=== PATIENT | female | born 1935 | race Asian ===

== ENCOUNTER 2019-07-06 17:25 | Inpatient (IN) | payer MEDICARE, MEDICAID ==
[~2019-07-06] VITALS: Ht 157.5 cm; Wt 88.5 kg
[~2019-07-06 17:25] MED LIST: CILO100T PO; DILT-26 PO; DOCU-150 PO; FERR325T6 PO; FISH1CAP34 PO; GLUC500T12 PO; MONT10TA26 PO; NITR0.4T49 SL; PRAV80TA19 PO; SPIR25TA6 PO; VALS1TAB2 PO
[2019-07-06] MEDS ORDERED: SODIUM CHLORIDE 0.9% 1000ML BAG (SEPSIS BOLUS) IV ONE (17:45)
[2019-07-06 17:55] LABS: HEMATOCRIT. 33.6 % (36.0-48.0); HEMOGLOBIN. 11.3 g/dL (12.0-16.0); MEAN CORPUSCULAR VOLUME 80.4 fL (81.0-99.0); MEAN PLATELET VOLUME 7.2 fl (7.4-10.4); PLATELET 370 x1000/uL (130-400); RED BLOOD CELL COUNT 4.18 mill/uL (4.2-5.4); RED CELL DISTRIBUTION WIDTH 13.9 % (11.6-14.6)
[2019-07-06 18:01] LABS: CHLORIDE 92 mEq/L (98-107)
[2019-07-06 18:04] LABS: INR 0.9; PROTHROMBIN TIME 9.7 sec (9.6-11.0)
[2019-07-06 18:05] LABS: KETONES URINE TRACE (NEGATIVE); LEUKOCYTE ESTERASE URINE 3+ (NEGATIVE); NITRITE URINE NEGATIVE (NEGATIVE); OCCULT BLOOD URINE 3+ (NEGATIVE); PROTEIN URINE 3+ (NEGATIVE); SPECIFIC GRAVITY URINE 1.015 (1.005-1.030)
[2019-07-06 18:11] LABS: CLARITY URINE CLOUDY (CLEAR); COLOR URINE YELLOW (YELLOW)
[2019-07-06 18:14] LABS: PLATELET ESTIMATE NORMAL
[2019-07-06] MEDS ORDERED: VANCOMYCIN 1 G PREMIX 200 ML IV ONE (18:15)
[2019-07-06] MEDS ORDERED: PIPERACILLIN/TAZ 3.375G PREMIX 50 ML IV ONE (18:15)
[2019-07-06] MEDS ORDERED: NOREPINEPHRINE 4MG/250ML PMX 250 ML IV ONE (19:30)
[2019-07-06 20:38] LABS: BG BASE EXCESS -11.2 mmol/L (-2.0-2.0); BG CARBOXYHEMOGLOBIN 0.2 % (0.5-1.5); BG DEOXYHEMOGLOBIN 5.6 % (0.0-5.0); BG FRACTION INSPIRED OXYGEN 100; BG METHEMOGLOBIN 0.2 % (0.0-1.5); BG OXYGEN SATURATION 94.4 % (92.0-98.5); BG PCO2 41.1 mmHg (35.0-45.0); BG PH 7.208 (7.350-7.450); BG PO2 120.4 mmHg (75.0-100.0); BG SAMPLE SITE RIGHT RADIAL; BG TOTAL HEMOGLOBIN 9.6 g/dL (12.0-18.0); BG VENT MODE MASK - NRB
[2019-07-06] MEDS ORDERED: DIPHENHYDRAMINE 50MG/ML VIAL IV PRN (21:15)
[2019-07-06] MEDS ORDERED: ACETAMINOPHEN 325MG TABLET PO PRN (21:15)
[2019-07-06] MEDS ORDERED: VANCOMYCIN 1 G PREMIX 200 ML IV SCH (21:15)
[2019-07-06] MEDS ORDERED: GUAIFENESIN 200MG/10ML SUGAR FREE UDC PO PRN (21:15)
[2019-07-06] MEDS ORDERED: ONDANSETRON HCL 4MG/2ML INJ IV PRN (21:15)
[2019-07-06] MEDS ORDERED: DEXTROSE 50% WATER 50ML SYRINGE IV PRN (21:15)
[2019-07-06] MEDS ORDERED: IPRATROPIUM/ALBUTEROL 0.5-3(2.5)MG/3ML NEB HHN PRN (21:15)
[2019-07-06] MEDS ORDERED: SODIUM BICARBONATE 8.4% 1 MEQ/ML 50ML SYR IV ONE (21:15)
[2019-07-06] MEDS: SODIUM BICARBONATE 100 MEQ in DEXTROSE 5% WATER 1,000 ML IV SCH (21:53)
[2019-07-06] MEDS ORDERED: MEROPENEM 1,000 MG in SODIUM CHLORIDE 0.9% 100 ML IV SCH (23:00)
[2019-07-06] MEDS ORDERED: MEROPENEM-0.9% SODIUM CHLORIDE 50 ML IV SCH ×2 (23:00)
[2019-07-07] VITALS (78 sets, daily range): BP systolic 79–139; BP diastolic 45–112
[2019-07-07] MEDS: SODIUM BICARBONATE 100 MEQ in DEXTROSE 5% WATER 1,000 ML IV SCH (01:13)
[2019-07-07] MEDS ORDERED: NOREPINEPHRINE 4 MG in DEXT 5% WATER 246 ML IV PRN ×4 (02:00)
[2019-07-07] MEDS ORDERED: MEROPENEM 1,000 MG in SODIUM CHLORIDE 0.9% 100 ML IV SCH (05:00)
[2019-07-07] MEDS: BLOOD SUGAR DIAGNOSTIC STRIP TEST SCH ×4 (05:50→21:04)
[2019-07-07] MEDS: INSULIN LISPRO 100 UNITS/ML SUBCUT SCH ×4 (05:50→21:00)
[2019-07-07 06:39] LABS: HEMATOCRIT. 30.2 % (36.0-48.0); HEMOGLOBIN. 10.2 g/dL (12.0-16.0); MEAN CORPUSCULAR HEMOGLOBIN 27.2 pg (28.0-32.0); MEAN CORPUSCULAR VOLUME 80.3 fL (81.0-99.0); PLATELET 332 x1000/uL (130-400); RED BLOOD CELL COUNT 3.76 mill/uL (4.2-5.4)
[2019-07-07 06:51] LABS: CHLORIDE 94 mEq/L (98-107)
[2019-07-07 07:03] LABS: PHOSPHORUS 3.6 mg/dL (2.5-4.9)
[2019-07-07 07:25] LABS: VITAMIN B12 SERUM >2000 pg/mL pg/mL (211-911)
[2019-07-07 08:58] LABS: PLATELET ESTIMATE NORMAL
[2019-07-07] MEDS ORDERED: PANTOPRAZOLE SODIUM 40 MG/VIAL IV SCH (09:00)
[2019-07-07] MEDS ORDERED: VANCOMYCIN HCL 750 MG in DEXT 5% WATER 250 ML IV SCH (09:00)
[2019-07-07 09:34] LABS: BG CARBOXYHEMOGLOBIN 0.3 % (0.5-1.5); BG DEOXYHEMOGLOBIN 6.4 % (0.0-5.0); BG FRACTION INSPIRED OXYGEN 40; BG HCO3 ACT 23.4 mmol/L (22.0-26.0); BG OXYGEN SATURATION 93.6 % (92.0-98.5); BG OXYHEMOGLOBIN 93.3 % (94.0-97.0); BG PCO2 42.6 mmHg (35.0-45.0); BG PH 7.357 (7.350-7.450); BG PO2 83.4 mmHg (75.0-100.0); BG SAMPLE SITE LEFT RADIAL; BG TOTAL HEMOGLOBIN 9.1 g/dL (12.0-18.0); BG VENT MODE NASAL CANNULA
[2019-07-07] MEDS ORDERED: MEROPENEM 500 MG in SODIUM CHLORIDE 0.9% 50 ML IV SCH (10:00)
[2019-07-07] MEDS ORDERED: NOREPINEPHRINE 4 MG in SODIUM CHLORIDE 0.9% 246 ML IV PRN (10:13)
[2019-07-07 12:06] LABS: C REACTIVE PROTEIN QUANT 8.4 mg/L (0.0-3.0)
[2019-07-07] MEDS: [UNRECOGNIZED DRUG - OTHER] IV SCH (12:56)
[2019-07-07] MEDS: SODIUM BICARBONATE IV SCH (12:56)
[2019-07-07] MEDS: POTASSIUM CHLORIDE IV SCH (12:56)
[2019-07-07] MEDS ORDERED: CEFTRIAXONE 1 G PREMIX 50 ML IV SCH (16:00)
[2019-07-07] MEDS: AZITHROMYCIN 500 MG in DEXT 5% WATER 250 ML IV SCH (17:08)
[2019-07-08] VITALS (81 sets, daily range): BP systolic 90–157; BP diastolic 48–120
[2019-07-08] MEDS: SODIUM BICARBONATE IV SCH (01:15)
[2019-07-08] MEDS: [UNRECOGNIZED DRUG - OTHER] IV SCH (01:15)
[2019-07-08] MEDS: POTASSIUM CHLORIDE IV SCH (01:15)
[2019-07-08 05:38] LABS: HEMATOCRIT. 27.5 % (36.0-48.0); HEMOGLOBIN. 9.3 g/dL (12.0-16.0); MEAN CORPUSCULAR HEMOGLOBIN 27.2 pg (28.0-32.0); MEAN PLATELET VOLUME 7.3 fl (7.4-10.4); PLATELET 329 x1000/uL (130-400); RED BLOOD CELL COUNT 3.44 mill/uL (4.2-5.4)
[2019-07-08 05:45] LABS: CHLORIDE 99 mEq/L (98-107)
[2019-07-08 05:53] LABS: PHOSPHORUS 2.8 mg/dL (2.5-4.9)
[2019-07-08] MEDS: BLOOD SUGAR DIAGNOSTIC STRIP TEST SCH ×4 (06:30→21:00)
[2019-07-08] MEDS: INSULIN LISPRO 100 UNITS/ML SUBCUT SCH ×4 (07:00→21:00)
[2019-07-08 08:13] LABS: PLATELET ESTIMATE NORMAL
[2019-07-08] MEDS: FAMOTIDINE 20MG/2ML VIAL IV SCH (09:52)
[2019-07-08] MEDS ORDERED: VANCOMYCIN 1 G PREMIX 200 ML IV SCH (10:00)
[2019-07-08] MEDS ORDERED: MAGNESIUM 1 G PREMIX 100 ML IV ONE (10:00)
[2019-07-08] MEDS: POTASSIUM CHLORIDE INJ 40 MEQ in SODIUM CHLORIDE 0.9% 1,000 ML IV SCH (10:00)
[2019-07-08] MEDS ORDERED: VANCOMYCIN 1,000 MG in DEXT 5% WATER 250 ML IV SCH (10:00)
[2019-07-08] MEDS: ENOXAPARIN 30MG/0.3ML SYR SUBCUT SCH (13:00)
[2019-07-08] MEDS: AZITHROMYCIN 500 MG in DEXT 5% WATER 250 ML IV SCH (16:50)
[2019-07-08] MEDS ORDERED: ALBUTEROL (0.083%) 2.5MG/3ML NEB HHN SCH (18:00)
[2019-07-08] MEDS: CEFTRIAXONE 1 G PREMIX 50 ML IV SCH (20:21)
[2019-07-09] VITALS: BP 144/77
[2019-07-09 04:00] VITALS: BP 135/74
[2019-07-09] MEDS: BLOOD SUGAR DIAGNOSTIC STRIP TEST SCH ×4 (06:53→21:00)
[2019-07-09] MEDS: INSULIN LISPRO 100 UNITS/ML SUBCUT SCH ×4 (06:54→21:00)
[2019-07-09 08:00] VITALS: BP 133/50
[2019-07-09 09:48] LABS: BASOPHILS % 0.5 % (0.0-2.0); EOSINOPHILS % 1.7 % (0.0-5.0); HEMATOCRIT. 27.2 % (36.0-48.0); MEAN CORPUSCULAR HEMOGLOBIN 27.3 pg (28.0-32.0); MEAN CORPUSCULAR VOLUME 82.4 fL (81.0-99.0); MEAN PLATELET VOLUME 6.6 fl (7.4-10.4); MONOCYTES % 5.4 % (2.0-8.0); NEUTROPHILS % 82.4 % (40.0-76.0); PLATELET 340 x1000/uL (130-400)
[2019-07-09 10:06] LABS: PHOSPHORUS 1.9 mg/dL (2.5-4.9)
[2019-07-09] MEDS ORDERED: POTASSIUM CHLORIDE 20MEQ TABLET SR PO NR (11:00)
[2019-07-09] MEDS: HYDROXYCHLOROQUINE SULFATE 200MG TABLET PO SCH ×2 (11:16→21:43)
[2019-07-09] MEDS: FAMOTIDINE 20MG/2ML VIAL IV SCH (11:16)
[2019-07-09 12:00] VITALS: BP 100/73
[2019-07-09] MEDS ORDERED: POTASSIUM PHOS,M-BASIC-D-BASIC 20 MMOL in DEXT 5% WATER 243.3333 ML IV NR (12:00)
[2019-07-09] MEDS ORDERED: MAGNESIUM 4 G PREMIX 100 ML IV NR (12:00)
[2019-07-09] MEDS: VANCOMYCIN 1,000 MG in DEXT 5% WATER 250 ML IV SCH (12:32)
[2019-07-09] MEDS: ENOXAPARIN 30MG/0.3ML SYR SUBCUT SCH (12:41)
[2019-07-09 16:00] VITALS: BP 150/60
[2019-07-09] MEDS: AZITHROMYCIN 500 MG in DEXT 5% WATER 250 ML IV SCH (17:11)
[2019-07-09] MEDS: CEFTRIAXONE 1 G PREMIX 50 ML IV SCH (17:11)
[2019-07-09 20:00] VITALS: BP 134/76
[2019-07-10] VITALS: BP 147/85
[2019-07-10] MEDS: ACETAMINOPHEN 325MG TABLET PO PRN ×2 (00:15→12:19)
[2019-07-10 04:00] VITALS: BP 138/78
[2019-07-10] MEDS: BLOOD SUGAR DIAGNOSTIC STRIP TEST SCH ×4 (05:59→21:00)
[2019-07-10] MEDS: INSULIN LISPRO 100 UNITS/ML SUBCUT SCH ×4 (06:00→21:00)
[2019-07-10 06:34] LABS: BASOPHILS % 0.6 % (0.0-2.0); EOSINOPHILS % 3.1 % (0.0-5.0); HEMATOCRIT. 25.6 % (36.0-48.0); HEMOGLOBIN. 8.9 g/dL (12.0-16.0); LYMPHOCYTES % 9.8 % (20.0-50.0); MEAN CORPUSCULAR HEMOGLOBIN 27.9 pg (28.0-32.0); MEAN CORPUSCULAR VOLUME 80.8 fL (81.0-99.0); MEAN PLATELET VOLUME 6.8 fl (7.4-10.4); MONOCYTES % 8.5 % (2.0-8.0); PLATELET 362 x1000/uL (130-400); RED BLOOD CELL COUNT 3.18 mill/uL (4.2-5.4); RED CELL DISTRIBUTION WIDTH 14.2 % (11.6-14.6)
[2019-07-10 07:09] LABS: PHOSPHORUS 3.2 mg/dL (2.5-4.9)
[2019-07-10 08:00] VITALS: BP 120/50
[2019-07-10] MEDS: LOSARTAN POTASSIUM 25 MG TABLET PO SCH (09:00)
[2019-07-10] MEDS: VANCOMYCIN 1,000 MG in DEXT 5% WATER 250 ML IV SCH (09:18)
[2019-07-10] MEDS: HYDROXYCHLOROQUINE SULFATE 200MG TABLET PO SCH ×2 (09:18→22:04)
[2019-07-10] MEDS: FAMOTIDINE 20MG/2ML VIAL IV SCH (09:19)
[2019-07-10 12:00] VITALS: BP 135/65
[2019-07-10] MEDS: POTASSIUM CHLORIDE INJ 40 MEQ in SODIUM CHLORIDE 0.9% 1,000 ML IV SCH (12:18)
[2019-07-10] MEDS: ENOXAPARIN 30MG/0.3ML SYR SUBCUT SCH (12:19)
[2019-07-10 16:00] VITALS: BP 165/73
[2019-07-10] MEDS ORDERED: TRAMADOL 50MG TABLET PO PRN (16:00)
[2019-07-10] MEDS: DILTIAZEM HCL 30MG TABLET PO SCH ×2 (16:40→22:03)
[2019-07-10] MEDS: AZITHROMYCIN 500 MG in DEXT 5% WATER 250 ML IV SCH (16:41)
[2019-07-10] MEDS ORDERED: DILTIAZEM HCL 30MG TABLET PO SCH (18:00)
[2019-07-10] MEDS ORDERED: ALBUTEROL 6.7GM HFA INHALER ORI SCH (18:00)
[2019-07-10] MEDS: CEFTRIAXONE 1 G PREMIX 50 ML IV SCH (18:19)
[2019-07-10 18:20] LABS: BG BASE EXCESS 2.5 mmol/L (-2.0-2.0); BG CARBOXYHEMOGLOBIN 0.2 % (0.5-1.5); BG DEOXYHEMOGLOBIN 5.9 % (0.0-5.0); BG FRACTION INSPIRED OXYGEN 38; BG HCO3 ACT 28.3 mmol/L (22.0-26.0); BG METHEMOGLOBIN 0.1 % (0.0-1.5); BG OXYGEN SATURATION 94.1 % (92.0-98.5); BG OXYHEMOGLOBIN 93.8 % (94.0-97.0); BG PCO2 49.9 mmHg (35.0-45.0); BG PH 7.371 (7.350-7.450); BG PO2 97.8 mmHg (75.0-100.0); BG SAMPLE SITE RIGHT RADIAL; BG TOTAL HEMOGLOBIN 9.1 g/dL (12.0-18.0); BG VENT MODE NASAL CANNULA
[2019-07-11] MEDS: DILTIAZEM HCL 30MG TABLET PO SCH ×4 (05:59→21:10)
[2019-07-11] MEDS: INSULIN LISPRO 100 UNITS/ML SUBCUT SCH ×4 (07:01→21:00)
[2019-07-11] MEDS: BLOOD SUGAR DIAGNOSTIC STRIP TEST SCH ×4 (07:01→21:55)
[2019-07-11 07:10] LABS: HEMATOCRIT. 26.6 % (36.0-48.0); MEAN CORPUSCULAR HEMOGLOBIN 27.3 pg (28.0-32.0); MEAN PLATELET VOLUME 7.1 fl (7.4-10.4); PLATELET 380 x1000/uL (130-400); RED BLOOD CELL COUNT 3.29 mill/uL (4.2-5.4); RED CELL DISTRIBUTION WIDTH 14.2 % (11.6-14.6)
[2019-07-11 07:11] LABS: CHLORIDE 103 mEq/L (98-107)
[2019-07-11 07:30] LABS: PHOSPHORUS 2.8 mg/dL (2.5-4.9)
[2019-07-11 08:00] VITALS: BP 142/70
[2019-07-11 10:32] LABS: PLATELET ESTIMATE NORMAL
[2019-07-11] MEDS: ACETAMINOPHEN 325MG TABLET PO PRN (10:32)
[2019-07-11] MEDS: FAMOTIDINE 20MG/2ML VIAL IV SCH (10:32)
[2019-07-11] MEDS: VANCOMYCIN 1,000 MG in DEXT 5% WATER 250 ML IV SCH (10:32)
[2019-07-11] MEDS: HYDROXYCHLOROQUINE SULFATE 200MG TABLET PO SCH ×2 (10:33→21:10)
[2019-07-11] MEDS: AZITHROMYCIN 500 MG TABLET PO SCH (10:33)
[2019-07-11] MEDS: LOSARTAN POTASSIUM 25 MG TABLET PO SCH (10:33)
[2019-07-11 12:00] VITALS: BP 121/70
[2019-07-11] MEDS: ENOXAPARIN 40MG/0.4ML SYR SUBCUT SCH (14:06)
[2019-07-11 16:00] VITALS: BP 140/74
[2019-07-11 20:00] VITALS: BP 149/78
[2019-07-12] VITALS: BP_SYST 127; BP_SYST 144; BP_DIAS 75; BP_DIAS 76
[2019-07-12 04:00] VITALS: BP 140/70
[2019-07-12] MEDS: DILTIAZEM HCL 30MG TABLET PO SCH ×4 (04:04→22:47)
[2019-07-12 05:21] LABS: BASOPHILS % 0.8 % (0.0-2.0); EOSINOPHILS % 3.2 % (0.0-5.0); HEMATOCRIT. 25.4 % (36.0-48.0); HEMOGLOBIN. 8.5 g/dL (12.0-16.0); LYMPHOCYTES % 12.4 % (20.0-50.0); MEAN CORPUSCULAR HEMOGLOBIN 27.4 pg (28.0-32.0); MEAN CORPUSCULAR VOLUME 81.2 fL (81.0-99.0); MONOCYTES % 8.8 % (2.0-8.0); NEUTROPHILS % 74.8 % (40.0-76.0); PLATELET 367 x1000/uL (130-400); RED BLOOD CELL COUNT 3.12 mill/uL (4.2-5.4); RED CELL DISTRIBUTION WIDTH 13.8 % (11.6-14.6)
[2019-07-12] MEDS: BLOOD SUGAR DIAGNOSTIC STRIP TEST SCH ×4 (05:58→21:00)
[2019-07-12] MEDS: INSULIN LISPRO 100 UNITS/ML SUBCUT SCH ×4 (06:45→21:00)
[2019-07-12] MEDS ORDERED: LOSARTAN POTASSIUM 50 MG TABLET PO SCH (09:00)
[2019-07-12] MEDS: HYDROXYCHLOROQUINE SULFATE 200MG TABLET PO SCH (10:25)
[2019-07-12] MEDS: FAMOTIDINE 20MG TABLET PO SCH (10:27)
[2019-07-12] MEDS: ALBUTEROL 6.7GM HFA INHALER ORI SCH ×2 (10:28→15:30)
[2019-07-12] MEDS: AZITHROMYCIN 500 MG TABLET PO SCH (10:28)
[2019-07-12 11:14] VITALS: BP 157/69
[2019-07-12 12:07] VITALS: BP 119/77
[2019-07-12] MEDS: GUAIFENESIN 600MG ER TABLET PO SCH ×2 (14:17→22:44)
[2019-07-12] MEDS: ENOXAPARIN 40MG/0.4ML SYR SUBCUT SCH (14:18)
[2019-07-12 16:12] VITALS: BP 151/113
[2019-07-12 20:00] VITALS: BP 142/78
[2019-07-13] VITALS: BP 144/75
[2019-07-13] MEDS: HYDROXYCHLOROQUINE SULFATE 200MG TABLET PO SCH ×3 (01:05→22:09)
[2019-07-13 04:00] VITALS: BP 163/73
[2019-07-13] MEDS: DILTIAZEM HCL 30MG TABLET PO SCH (04:39)
[2019-07-13] MEDS: ALBUTEROL 6.7GM HFA INHALER ORI SCH ×4 (05:10→22:09)
[2019-07-13] MEDS: BLOOD SUGAR DIAGNOSTIC STRIP TEST SCH ×4 (06:15→21:00)
[2019-07-13] MEDS: INSULIN LISPRO 100 UNITS/ML SUBCUT SCH ×4 (06:19→21:00)
[2019-07-13 08:16] VITALS: BP 134/40
[2019-07-13] MEDS: FAMOTIDINE 20MG TABLET PO SCH (09:37)
[2019-07-13] MEDS: GUAIFENESIN 600MG ER TABLET PO SCH ×2 (09:37→22:09)
[2019-07-13] MEDS: LOSARTAN POTASSIUM 100 MG TABLET PO SCH (09:38)
[2019-07-13 12:00] VITALS: BP 126/84
[2019-07-13] MEDS: DILTIAZEM HCL 180MG CAPSULE CD 24HR PO SCH (12:22)
[2019-07-13 16:11] VITALS: BP 126/73
[2019-07-13] MEDS: ENOXAPARIN 40MG/0.4ML SYR SUBCUT SCH (18:01)
[2019-07-13 20:00] VITALS: BP 138/68
[2019-07-14] VITALS: BP 139/64
[2019-07-14] MEDS: ALBUTEROL 6.7GM HFA INHALER ORI SCH ×4 (02:58→23:15)
[2019-07-14 04:00] VITALS: BP 125/50
[2019-07-14] MEDS: BLOOD SUGAR DIAGNOSTIC STRIP TEST SCH ×4 (06:40→21:00)
[2019-07-14] MEDS: INSULIN LISPRO 100 UNITS/ML SUBCUT SCH ×4 (07:10→21:00)
[2019-07-14 08:00] VITALS: BP 139/65
[2019-07-14] MEDS: LOSARTAN POTASSIUM 100 MG TABLET PO SCH (09:59)
[2019-07-14] MEDS: GUAIFENESIN 600MG ER TABLET PO SCH ×2 (09:59→22:11)
[2019-07-14] MEDS: FAMOTIDINE 20MG TABLET PO SCH (09:59)
[2019-07-14] MEDS: DILTIAZEM HCL 180MG CAPSULE CD 24HR PO SCH (09:59)
[2019-07-14 12:00] VITALS: BP 127/69
[2019-07-14] MEDS: ENOXAPARIN 40MG/0.4ML SYR SUBCUT SCH (14:37)
[2019-07-14 16:00] VITALS: BP 143/66
[2019-07-14 16:25] LABS: BASOPHILS % 1.1 % (0.0-2.0); EOSINOPHILS % 2.6 % (0.0-5.0); HEMATOCRIT. 29.5 % (36.0-48.0); LYMPHOCYTES % 12.5 % (20.0-50.0); MEAN CORPUSCULAR HEMOGLOBIN 27.8 pg (28.0-32.0); MEAN CORPUSCULAR VOLUME 82.5 fL (81.0-99.0); NEUTROPHILS % 75.8 % (40.0-76.0); PLATELET 397 x1000/uL (130-400); RED BLOOD CELL COUNT 3.58 mill/uL (4.2-5.4)
[2019-07-14 16:32] LABS: CHLORIDE 101 mEq/L (98-107)
[2019-07-14 16:38] LABS: PHOSPHORUS 3.4 mg/dL (2.5-4.9)
[2019-07-14 16:39] LABS: C REACTIVE PROTEIN QUANT 8.6 mg/L (0.0-3.0)
[2019-07-14 17:47] LABS: BG BASE EXCESS 3.3 mmol/L (-2.0-2.0); BG CARBOXYHEMOGLOBIN 0.2 % (0.5-1.5); BG DEOXYHEMOGLOBIN 4.3 % (0.0-5.0); BG FRACTION INSPIRED OXYGEN 36; BG HCO3 ACT 27.9 mmol/L (22.0-26.0); BG METHEMOGLOBIN 0.2 % (0.0-1.5); BG OXYGEN SATURATION 95.7 % (92.0-98.5); BG OXYHEMOGLOBIN 95.3 % (94.0-97.0); BG PCO2 42.6 mmHg (35.0-45.0); BG PH 7.434 (7.350-7.450); BG PO2 115.4 mmHg (75.0-100.0); BG SAMPLE SITE RIGHT BRACHIAL; BG TOTAL HEMOGLOBIN 9.2 g/dL (12.0-18.0); BG VENT MODE NASAL CANNULA
[2019-07-14 20:00] VITALS: BP 145/54
[2019-07-15] VITALS: BP 148/66
[2019-07-15 04:00] VITALS: BP 144/67
[2019-07-15] MEDS: ALBUTEROL 6.7GM HFA INHALER ORI SCH ×4 (04:05→20:56)
[2019-07-15] MEDS: BLOOD SUGAR DIAGNOSTIC STRIP TEST SCH ×4 (06:50→21:14)
[2019-07-15] MEDS: INSULIN LISPRO 100 UNITS/ML SUBCUT SCH ×5 (06:51→21:00)
[2019-07-15 08:00] VITALS: BP 139/78
[2019-07-15] MEDS: FAMOTIDINE 20MG TABLET PO SCH (09:26)
[2019-07-15] MEDS: DILTIAZEM HCL 180MG CAPSULE CD 24HR PO SCH (09:27)
[2019-07-15] MEDS: GUAIFENESIN 600MG ER TABLET PO SCH ×2 (09:27→20:56)
[2019-07-15] MEDS: LOSARTAN POTASSIUM 100 MG TABLET PO SCH (09:27)
[2019-07-15 12:00] VITALS: BP 149/84
[2019-07-15] MEDS: ENOXAPARIN 40MG/0.4ML SYR SUBCUT SCH (14:31)
[2019-07-15 16:00] VITALS: BP 164/70
[2019-07-15 17:08] LABS: BG BASE EXCESS -1.2 mmol/L (-2.0-2.0); BG FRACTION INSPIRED OXYGEN 21; BG HCO3 ACT 23.1 mmol/L (22.0-26.0); BG METHEMOGLOBIN 0.1 % (0.0-1.5); BG OXYHEMOGLOBIN 88.9 % (94.0-97.0); BG PCO2 36.7 mmHg (35.0-45.0); BG PH 7.417 (7.350-7.450); BG PO2 64.5 mmHg (75.0-100.0); BG SAMPLE SITE RIGHT RADIAL; BG TOTAL HEMOGLOBIN 9.5 g/dL (12.0-18.0); BG VENT MODE ROOM AIR
[2019-07-15 20:00] VITALS: BP 164/77
[2019-07-15] MEDS ORDERED: CLONIDINE 0.1MG TABLET PO PRN (22:15)
[2019-07-16] VITALS: BP 114/59
[2019-07-16] MEDS: ALBUTEROL 6.7GM HFA INHALER ORI SCH (03:36)
[2019-07-16 04:00] VITALS: BP 127/41
[2019-07-16] MEDS: INSULIN LISPRO 100 UNITS/ML SUBCUT SCH ×4 (06:59→21:00)
[2019-07-16] MEDS: BLOOD SUGAR DIAGNOSTIC STRIP TEST SCH ×4 (06:59→21:00)
[2019-07-16 08:00] VITALS: BP 113/68
[2019-07-16] MEDS: FAMOTIDINE 20MG TABLET PO SCH (09:00)
[2019-07-16] MEDS: LOSARTAN POTASSIUM 100 MG TABLET PO SCH (09:42)
[2019-07-16] MEDS: DILTIAZEM HCL 180MG CAPSULE CD 24HR PO SCH (09:42)
[2019-07-16] MEDS: GUAIFENESIN 600MG ER TABLET PO SCH ×2 (09:42→22:33)
[2019-07-16 12:00] VITALS: BP_SYST 135; BP_SYST 144; BP_DIAS 47; BP_DIAS 67
[2019-07-16] MEDS: ENOXAPARIN 40MG/0.4ML SYR SUBCUT SCH (13:47)
[2019-07-16 16:00] VITALS: BP 135/47
[2019-07-16 20:00] VITALS: BP 140/59
[2019-07-17] VITALS: BP 155/61
[2019-07-17 04:00] VITALS: BP 158/58
[2019-07-17] MEDS: BLOOD SUGAR DIAGNOSTIC STRIP TEST SCH ×4 (06:40→21:47)
[2019-07-17] MEDS: INSULIN LISPRO 100 UNITS/ML SUBCUT SCH ×4 (07:10→21:00)
[2019-07-17 08:07] VITALS: BP 152/66
[2019-07-17] MEDS: LOSARTAN POTASSIUM 100 MG TABLET PO SCH (09:40)
[2019-07-17] MEDS: GUAIFENESIN 600MG ER TABLET PO SCH ×2 (09:40→20:45)
[2019-07-17] MEDS: FAMOTIDINE 20MG TABLET PO SCH (09:40)
[2019-07-17] MEDS: DILTIAZEM HCL 180MG CAPSULE CD 24HR PO SCH (09:40)
[2019-07-17] MEDS: ALBUTEROL 6.7GM HFA INHALER ORI SCH ×4 (10:08→20:45)
[2019-07-17 12:09] VITALS: BP 120/69
[2019-07-17] MEDS: ENOXAPARIN 40MG/0.4ML SYR SUBCUT SCH (15:02)
[2019-07-17 16:10] VITALS: BP 138/56
[2019-07-17 20:00] VITALS: BP 131/69
[2019-07-18 00:13] VITALS: BP 135/63
[2019-07-18 04:00] VITALS: BP 158/52
[2019-07-18] MEDS: ALBUTEROL 6.7GM HFA INHALER ORI SCH ×5 (04:32→21:54)
[2019-07-18] MEDS: INSULIN LISPRO 100 UNITS/ML SUBCUT SCH ×4 (06:43→21:00)
[2019-07-18] MEDS: BLOOD SUGAR DIAGNOSTIC STRIP TEST SCH ×4 (06:43→21:53)
[2019-07-18 08:00] VITALS: BP 150/61
[2019-07-18] MEDS: GUAIFENESIN 600MG ER TABLET PO SCH ×2 (09:53→21:38)
[2019-07-18] MEDS: DILTIAZEM HCL 180MG CAPSULE CD 24HR PO SCH (09:53)
[2019-07-18] MEDS: FAMOTIDINE 20MG TABLET PO SCH (09:53)
[2019-07-18] MEDS: LOSARTAN POTASSIUM 100 MG TABLET PO SCH (09:53)
[2019-07-18 12:29] VITALS: BP 156/76
[2019-07-18] MEDS: ENOXAPARIN 40MG/0.4ML SYR SUBCUT SCH (15:34)
[2019-07-18 17:17] VITALS: BP 144/48
[2019-07-18 20:00] VITALS: BP 148/64
[2019-07-19] VITALS: BP 144/68
[2019-07-19] MEDS: ALBUTEROL 6.7GM HFA INHALER ORI SCH ×4 (03:23→21:30)
[2019-07-19 04:00] VITALS: BP 145/64
[2019-07-19] MEDS: BLOOD SUGAR DIAGNOSTIC STRIP TEST SCH ×4 (07:08→21:00)
[2019-07-19] MEDS: INSULIN LISPRO 100 UNITS/ML SUBCUT SCH ×4 (07:08→21:00)
[2019-07-19 08:00] VITALS: BP 179/63
[2019-07-19] MEDS: DILTIAZEM HCL 180MG CAPSULE CD 24HR PO SCH (10:12)
[2019-07-19] MEDS: FAMOTIDINE 20MG TABLET PO SCH (10:13)
[2019-07-19] MEDS: LOSARTAN POTASSIUM 100 MG TABLET PO SCH (10:13)
[2019-07-19] MEDS: GUAIFENESIN 600MG ER TABLET PO SCH ×2 (11:34→21:22)
[2019-07-19 12:00] VITALS: BP 140/58
[2019-07-19] MEDS: ENOXAPARIN 40MG/0.4ML SYR SUBCUT SCH (14:37)
[2019-07-19 16:00] VITALS: BP 133/60
[2019-07-19 20:00] VITALS: BP 120/53
[2019-07-20] VITALS: BP 137/55
[2019-07-20] MEDS: ALBUTEROL 6.7GM HFA INHALER ORI SCH ×4 (03:30→21:30)
[2019-07-20 04:00] VITALS: BP 121/66
[2019-07-20] MEDS: INSULIN LISPRO 100 UNITS/ML SUBCUT SCH ×4 (05:53→21:00)
[2019-07-20] MEDS: BLOOD SUGAR DIAGNOSTIC STRIP TEST SCH ×4 (05:53→21:12)
[2019-07-20 08:00] VITALS: BP 138/91
[2019-07-20] MEDS: FAMOTIDINE 20MG TABLET PO SCH (10:05)
[2019-07-20] MEDS: GUAIFENESIN 600MG ER TABLET PO SCH ×2 (10:05→21:11)
[2019-07-20] MEDS: DILTIAZEM HCL 180MG CAPSULE CD 24HR PO SCH (10:06)
[2019-07-20] MEDS: LOSARTAN POTASSIUM 100 MG TABLET PO SCH (10:06)
[2019-07-20 12:00] VITALS: BP 107/68
[2019-07-20] MEDS: ENOXAPARIN 40MG/0.4ML SYR SUBCUT SCH (14:03)
[2019-07-20 16:00] VITALS: BP 134/58
[2019-07-20 20:00] VITALS: BP 132/65
[2019-07-21] VITALS: BP 130/66
[2019-07-21] MEDS: ALBUTEROL 6.7GM HFA INHALER ORI SCH ×3 (03:30→14:48)
[2019-07-21 04:00] VITALS: BP 140/60
[2019-07-21] MEDS: INSULIN LISPRO 100 UNITS/ML SUBCUT SCH ×3 (06:12→17:10)
[2019-07-21] MEDS: BLOOD SUGAR DIAGNOSTIC STRIP TEST SCH ×3 (06:12→17:01)
[2019-07-21 08:00] VITALS: BP 117/52
[2019-07-21] MEDS: LOSARTAN POTASSIUM 100 MG TABLET PO SCH (09:00)
[2019-07-21] MEDS: DILTIAZEM HCL 180MG CAPSULE CD 24HR PO SCH (09:17)
[2019-07-21] MEDS: FAMOTIDINE 20MG TABLET PO SCH (09:18)
[2019-07-21] MEDS: GUAIFENESIN 600MG ER TABLET PO SCH (09:18)
[2019-07-21 12:00] VITALS: BP 118/61
[2019-07-21] MEDS: ENOXAPARIN 40MG/0.4ML SYR SUBCUT SCH (13:35)
[2019-07-21 15:17] VITALS: BP 118/61
[2019-07-21 16:00] VITALS: BP 138/61
== END 2019-07-21 20:56 | disposition home health service (06) | DRG 720 ==
LOC: ER 17:25 → EEVIPCON 20:15 → CVICU 20:15 → ENRESERV 23:42 → MICUSO 07-07 02:50 → 7EST 07-08 20:37
PROVIDERS: ADMIT Internal Medicine; ATTEND Internal Medicine
PROC: 02HV33Z Insertion of Infusion Device into Superior Vena Cava, Percutaneous Approach (ICD-10-PCS; principal; 2019-07-06)
PROC: B548ZZA Ultrasonography of Superior Vena Cava, Guidance (ICD-10-PCS; 2019-07-06)
DX: A41.50 Gram-negative sepsis, unspecified (principal); U07.1 COVID-19; J96.01 Acute respiratory failure with hypoxia; A41.89 Other specified sepsis; G93.41 Metabolic encephalopathy; R65.21 Severe sepsis with septic shock; N18.3 Chronic kidney disease, stage 3 (moderate); D64.9 Anemia, unspecified; E66.01 Morbid (severe) obesity due to excess calories; E87.1 Hypo-osmolality and hyponatremia; E87.6 Hypokalemia; E87.2 Acidosis; J12.89 Other viral pneumonia; K52.9 Noninfective gastroenteritis and colitis, unspecified; I25.10 Atherosclerotic heart disease of native coronary artery without angina pectoris; I12.9 Hypertensive chronic kidney disease with stage 1 through stage 4 chronic kidney disease, or unspecified chronic kidney disease; J44.0 Chronic obstructive pulmonary disease with (acute) lower respiratory infection; E11.22 Type 2 diabetes mellitus with diabetic chronic kidney disease; E11.51 Type 2 diabetes mellitus with diabetic peripheral angiopathy without gangrene; N17.9 Acute kidney failure, unspecified; E78.00 Pure hypercholesterolemia, unspecified; E78.5 Hyperlipidemia, unspecified; E83.39 Other disorders of phosphorus metabolism; E83.42 Hypomagnesemia; G47.33 Obstructive sleep apnea (adult) (pediatric); N39.0 Urinary tract infection, site not specified; E11.40 Type 2 diabetes mellitus with diabetic neuropathy, unspecified; M19.90 Unspecified osteoarthritis, unspecified site; E87.8 Other disorders of electrolyte and fluid balance, not elsewhere classified; M17.10 Unilateral primary osteoarthritis, unspecified knee; Z83.3 Family history of diabetes mellitus; Z95.1 Presence of aortocoronary bypass graft; Z68.35 Body mass index [BMI] 35.0-35.9, adult; Z79.899 Other long term (current) drug therapy; Z90.49 Acquired absence of other specified parts of digestive tract
CPT/HCPCS: 36415; 36600; 71045; 74176; 80048; 80053; 80202; 81003; 82375; 82550; 82607; 82728; 82805; 82962; 83036; 83605; 83615; 83735; 84100; 84145; 84443; 84484; 85025; 85379; 86140; 87077; 87186; 87635; 87804; 93005; 94640; 96365; 97162; 99291; C9113; J0456; J0696; J1200; J1650; J1815; J2185; J2543; J3370; J3475; J3480; J3490; J7030; J7050; J7060; J7070

== ENCOUNTER 2020-09-18 10:04 | Inpatient (IN) | payer MEDICARE, MEDICAID ==
[~2020-09-18] VITALS: Ht 154.9 cm; Wt 93.2 kg
[~2020-09-18 10:04] MED LIST changes: -MONT10TA26 PO; +MONT10TA32 PO
[2020-09-18] MEDS ORDERED: SODIUM CHLORIDE 0.9% 1000ML BAG (SEPSIS BOLUS) IV ONE (10:45)
[2020-09-18 11:01] LABS: BASOPHILS % 0.4 % (0.0-2.0); EOSINOPHILS % 1.8 % (0.0-5.0); HEMATOCRIT. 32.6 % (36.0-48.0); LYMPHOCYTES % 23.8 % (20.0-50.0); MEAN CORPUSCULAR HEMOGLOBIN 27.9 pg (28.0-32.0); MEAN CORPUSCULAR VOLUME 82.6 fL (81.0-99.0); MONOCYTES % 7.4 % (2.0-8.0); NEUTROPHILS % 66.6 % (40.0-76.0); PLATELET 285 x1000/uL (130-400); RED BLOOD CELL COUNT 3.94 mill/uL (4.2-5.4); RED CELL DISTRIBUTION WIDTH 13.9 % (11.6-14.6)
[2020-09-18 11:06] LABS: CHLORIDE 92 mEq/L (98-107)
[2020-09-18 11:10] LABS: PROTHROMBIN TIME 10.3 sec (9.6-11.0)
[2020-09-18 11:45] LABS: CLARITY URINE CLEAR (CLEAR); COLOR URINE YELLOW (YELLOW); KETONES URINE NEGATIVE (NEGATIVE); LEUKOCYTE ESTERASE URINE 1+ (NEGATIVE); NITRITE URINE NEGATIVE (NEGATIVE); OCCULT BLOOD URINE NEGATIVE (NEGATIVE); PH URINE 6.5 (4.5-8.0); PROTEIN URINE NEGATIVE (NEGATIVE); SPECIFIC GRAVITY URINE 1.007 (1.005-1.030); UROBILINOGEN URINE 0.2 E.U./dL (0.2-1.0)
[2020-09-18] MEDS ORDERED: PIPERACILLIN/TAZ 3.375G PREMIX 50 ML IV ONE (13:00)
[2020-09-18 16:30] VITALS: BP 110/61
[2020-09-18] MEDS ORDERED: ACETAMINOPHEN 325MG TABLET PO PRN (17:30)
[2020-09-18] MEDS ORDERED: NITROGLYCERIN 0.4MG TABLET SL SL PRN (17:30)
[2020-09-18] MEDS ORDERED: NA PHOS,M-B/NA PHOS,DI-BA ENEMA 118ML PR PRN (17:30)
[2020-09-18] MEDS ORDERED: ONDANSETRON HCL 4MG/2ML INJ IV PRN (17:30)
[2020-09-18] MEDS ORDERED: GUAIFENESIN 200MG/10ML SUGAR FREE UDC PO PRN (17:30)
[2020-09-18] MEDS ORDERED: DOCUSATE SODIUM 100MG CAPSULE PO PRN (17:30)
[2020-09-18] MEDS ORDERED: DEXTROSE 50% WATER 50ML SYRINGE IV PRN (18:15)
[2020-09-18] MEDS ORDERED: LEVOFLOXACIN 500MG PREMIX 100 ML IV NR ×2 (18:30→18:45)
[2020-09-18] MEDS: SODIUM CHLORIDE 0.9% 1,000 ML IV SCH (18:31)
[2020-09-18] MEDS: ENOXAPARIN 40MG/0.4ML SYR SUBCUT SCH (18:32)
[2020-09-18 20:00] VITALS: BP 103/59
[2020-09-18] MEDS: BLOOD SUGAR DIAGNOSTIC STRIP TEST SCH (21:05)
[2020-09-18] MEDS: MONTELUKAST SODIUM 10MG TABLET PO SCH (21:18)
[2020-09-18] MEDS: ATORVASTATIN CALCIUM 40MG TABLET PO SCH (21:19)
[2020-09-18] MEDS: CILOSTAZOL 50 MG TABLET PO SCH (21:20)
[2020-09-18] MEDS: INSULIN LISPRO 100 UNITS/ML SUBCUT SCH (21:20)
[2020-09-19 00:11] VITALS: BP 144/65
[2020-09-19 04:00] VITALS: BP 106/61
[2020-09-19] MEDS: SODIUM CHLORIDE 0.9% 1,000 ML IV SCH ×2 (05:41→17:35)
[2020-09-19 07:07] LABS: CHLORIDE 103 mEq/L (98-107)
[2020-09-19 07:11] LABS: BASOPHILS % 0.6 % (0.0-2.0); HEMATOCRIT. 34.9 % (36.0-48.0); HEMOGLOBIN. 11.4 g/dL (12.0-16.0); MEAN CORPUSCULAR HEMOGLOBIN 27.2 pg (28.0-32.0); MEAN CORPUSCULAR VOLUME 83.2 fL (81.0-99.0); MEAN PLATELET VOLUME 7.2 fl (7.4-10.4); MONOCYTES % 8.8 % (2.0-8.0); NEUTROPHILS % 57.6 % (40.0-76.0); PLATELET 249 x1000/uL (130-400); RED BLOOD CELL COUNT 4.19 mill/uL (4.2-5.4)
[2020-09-19 07:21] LABS: HDL CHOLESTEROL 43 mg/dL (40-59); LDL CHOLESTEROL 80 mg/dL (5-100)
[2020-09-19] MEDS: BLOOD SUGAR DIAGNOSTIC STRIP TEST SCH ×4 (07:41→20:47)
[2020-09-19] MEDS: INSULIN LISPRO 100 UNITS/ML SUBCUT SCH ×4 (07:42→20:48)
[2020-09-19 08:11] VITALS: BP 140/69
[2020-09-19] MEDS: CILOSTAZOL 50 MG TABLET PO SCH ×2 (09:01→20:48)
[2020-09-19 12:09] VITALS: BP 157/78
[2020-09-19] MEDS: NYSTATIN POWDER 15GM TOP SCH ×2 (14:22→17:27)
[2020-09-19 15:29] VITALS: BP 139/84
[2020-09-19] MEDS: ENOXAPARIN 40MG/0.4ML SYR SUBCUT SCH (17:34)
[2020-09-19 20:32] VITALS: BP 169/86
[2020-09-19] MEDS: MONTELUKAST SODIUM 10MG TABLET PO SCH (20:48)
[2020-09-19] MEDS: ATORVASTATIN CALCIUM 40MG TABLET PO SCH (20:48)
[2020-09-20] VITALS (7 sets, daily range): BP systolic 135–178; BP diastolic 56–84
[2020-09-20] MEDS: CLONIDINE 0.1MG TABLET PO PRN (00:45)
[2020-09-20] MEDS: BLOOD SUGAR DIAGNOSTIC STRIP TEST SCH ×4 (07:20→21:46)
[2020-09-20] MEDS: INSULIN LISPRO 100 UNITS/ML SUBCUT SCH ×4 (07:50→21:45)
[2020-09-20] MEDS: NYSTATIN POWDER 15GM TOP SCH ×3 (10:38→17:38)
[2020-09-20] MEDS: CILOSTAZOL 50 MG TABLET PO SCH ×2 (10:39→21:46)
[2020-09-20] MEDS: SODIUM CHLORIDE 0.9% 1,000 ML IV SCH ×2 (10:39→21:46)
[2020-09-20] MEDS: DILTIAZEM HCL 120MG CAPSULE CD 24HR PO SCH (10:40)
[2020-09-20] MEDS: SPIRONOLACTONE 25MG TABLET PO SCH (17:24)
[2020-09-20] MEDS: ENOXAPARIN 40MG/0.4ML SYR SUBCUT SCH (17:37)
[2020-09-20] MEDS ORDERED: LEVOFLOXACIN 250MG PREMIX 50 ML IV SCH (18:00)
[2020-09-20] MEDS ORDERED: LEVOFLOXACIN 250MG TABLET PO SCH (18:00)
[2020-09-20] MEDS: MONTELUKAST SODIUM 10MG TABLET PO SCH (21:45)
[2020-09-20] MEDS: ATORVASTATIN CALCIUM 40MG TABLET PO SCH (21:46)
[2020-09-21 00:37] VITALS: BP 165/71
[2020-09-21] MEDS: CLONIDINE 0.1MG TABLET PO PRN ×2 (02:03→19:37)
[2020-09-21 04:00] VITALS: BP 135/58
[2020-09-21] MEDS: BLOOD SUGAR DIAGNOSTIC STRIP TEST SCH ×3 (06:26→16:58)
[2020-09-21] MEDS: INSULIN LISPRO 100 UNITS/ML SUBCUT SCH ×3 (07:31→17:10)
[2020-09-21 08:00] VITALS: BP 115/55
[2020-09-21] MEDS: SODIUM CHLORIDE 0.9% 1,000 ML IV SCH (08:30)
[2020-09-21] MEDS: DILTIAZEM HCL 120MG CAPSULE CD 24HR PO SCH (08:30)
[2020-09-21] MEDS: CILOSTAZOL 50 MG TABLET PO SCH (08:30)
[2020-09-21] MEDS: NYSTATIN POWDER 15GM TOP SCH ×3 (08:31→16:51)
[2020-09-21 12:00] VITALS: BP 125/60
[2020-09-21 13:41] VITALS: BP 125/60
[2020-09-21] MEDS ORDERED: ENOXAPARIN 30MG/0.3ML SYR SUBCUT SCH (14:00)
[2020-09-21 16:00] VITALS: BP 147/69
[2020-09-21] MEDS: SPIRONOLACTONE 25MG TABLET PO SCH (16:50)
[2020-09-21] MEDS ORDERED: LEVOFLOXACIN 250MG TABLET PO SCH (18:00)
== END 2020-09-21 20:30 | disposition home health service (06) | DRG 720 ==
LOC: ER 10:18 → 6WST 14:49 → EDBEDREQ 14:53 → EDBEDREQSVC 14:53 → ENRESERV 15:43
PROVIDERS: ADMIT Hospitalist; ATTEND Hospitalist
DX: A41.51 Sepsis due to Escherichia coli [E. coli] (principal); L89.101 Pressure ulcer of unspecified part of back, stage 1; N17.9 Acute kidney failure, unspecified; E87.2 Acidosis; E11.51 Type 2 diabetes mellitus with diabetic peripheral angiopathy without gangrene; N39.0 Urinary tract infection, site not specified; Z95.1 Presence of aortocoronary bypass graft; E87.1 Hypo-osmolality and hyponatremia; I25.10 Atherosclerotic heart disease of native coronary artery without angina pectoris; R65.20 Severe sepsis without septic shock; E78.5 Hyperlipidemia, unspecified; Z74.01 Bed confinement status; Z79.899 Other long term (current) drug therapy
CPT/HCPCS: 36415; 71045; 80053; 80061; 81003; 82040; 82962; 83036; 83605; 83880; 84134; 84145; 84484; 85025; 87077; 87186; 93005; 93970; 97162; 97166; 97535; 99291; J1650; J1815; J1956; J2543; J7030; A4315